=== PATIENT | female | born 1935 | race Caucasian/White ===

== ENCOUNTER → 2017-04-22 | Outpatient (CLI) | payer OTHER ==
[~2017-04-22] MED LIST: LOVASTATIN 20 M20 MG PO; NORCO 5-325 TA1 EACH PO; VALIUM5 MG PO
== END ==
LOC: ULTRA 08:34
DX: M79.671 Pain in right foot (principal); M79.672 Pain in left foot; M79.605 Pain in left leg; M79.604 Pain in right leg

== ENCOUNTER → 2018-03-21 | Outpatient (CLI) | payer OTHER | LOC: RAD 12:59 | DX: Z01.818 Encounter for other preprocedural examination (principal) ==

== ENCOUNTER → 2020-06-20 | Outpatient (CLI) | payer OTHER | LOC: BC 06-13 08:54 | PROVIDERS: ATTEND Family Medicine | DX: Z12.31 Encounter for screening mammogram for malignant neoplasm of breast (principal) ==